=== PATIENT | male | born 1930 | race Caucasian/White ===

== ENCOUNTER 2016-10-25 10:30 | Day surgery (SDC) | payer OTHER ==
[2016-10-03 13:23] VITALS: Ht 165.1 cm; Wt 78.6 kg
[~2016-10-25] VITALS: Ht 165.1 cm; Wt 78.6 kg
[~2016-10-25 10:30] MED LIST: ALLO300T2 PO; ATEN-173 PO; CALC600T9 PO; CHLO10CA7 PO; CHOL1000 PO; CIPROFLOXACIN 400MG / 200ML D5W IV SCH; CIPROFLOXACIN 500 MG TAB PO SCH; FINA5TAB PO; FURO-85 PO; HYT/2 PO; JOINT JUICE PO; LACTATED RINGER'S 1000ML 1,000 ML IV SCH; PHEN-876 PO; PHEN95TA10 PO; POTA20TA16 PO; PRLSR20 PO; SENN-63 PO; SIMV40TA2 PO; WARF1TAB6 PO; WARF2TAB8 PO
[2016-10-25 11:02] LABS: HEMATOCRIT 40.2 % (42-52); MEAN CELL VOLUME 83.1 fL (80-100); MEAN CORPUSCULAR HEMOGLOBIN 27.7 pg (25-34); MEAN PLATELET VOLUME 8.9 fL (7.4-10.4); PLATELET COUNT 153 K/uL (130-400); RED BLOOD COUNT 4.84 M/uL (4.7-6.1); WHITE BLOOD COUNT 9.68 K/uL (4.8-10.8)
[2016-10-25] MEDS ORDERED: ENOX80IN SQ (11:09)
[2016-10-25 11:12] VITALS: BP 158/71; PULSE 56; TEMP 36.9; O2SAT 98
[2016-10-25 11:13] LABS: MEAN CORPUSCULAR HGB CONC 33.3 g/dl (32-36)
[2016-10-25 11:16] LABS: INR 1.1 (0.9-1.1); PARTIAL THROMBOPLASTIN RATIO 1.1; PROTHROMBIN TIME (PATIENT) 11.4 SECONDS (9.0-12.0)
--- NOTE | 2016-10-25 12:13 | Endo History and Physical ---
History & Physical Date of Service: Oct 25, 2016. Chief Complaint: Pancreatic cyst Referring Physician: History of Present Illness 86 year old male referred for evaluation of an enlarging HOP cyst, MRI with 37 x 12 mm and evidence of growth over several years. Past Surgical History Hx Cardiac Surgery: No Hx Abdominal Surgery: Yes (LAP CHOLEY) Hx Post-Op Nausea and Vomiting: No Hx Cancer Surgery: Yes (BRONCHOSCOPY) Hx Thoracic Surgery: No Hx Orthopedic: No Hx Urinary Tract Surgery: Yes (CYSTOSCOPY) Social History Smoking Status: Former Smoker Hx Substance Use: No Hx Alcohol Use: Yes (H/O ALCOHOLISM QUIT 6 YEARS AGO) Allergies Coded Allergies: No Known Allergies (Unverified , 10/25/16) Current Medications Reported Home Medications Medications Dose Route/Sig Max Daily Dose Days Date Category Lovenox (Enoxaparin Sodium) 80 Mg/0.8 Ml Inj 80 Mg SQ Q12H 10/25/16 Reported Senokot (Sennosides) 8.6 Mg Tab 1 Tab PO QPM 10/03/16 Reported [Joint Juice] 4 Oz PO QPM 10/03/16 Reported Proscar (Finasteride) 5 Mg Tab 5 Mg PO QPM 10/03/16 Reported Vitamin D3 (Cholecalciferol) 1,000 Unit Tab 1 Tab PO QAM 10/03/16 Reported Librium (Chlordiazepoxide) 10 Mg Cap 10 Mg PO QAM PRN 10/03/16 Reported Calcium + D (Calcium Carbonate-Vitamin D) 1 Tab Tab 200 Mg PO BID 10/03/16 Reported Tenormin (Atenolol) 25 Mg Tab 25 Mg PO QAM 10/03/16 Reported Jantoven (Warfarin Sodium) 2 Mg Tab 2 Mg PO TWTHSASU 10/03/16 Reported Jantoven (Warfarin Sodium) 1 Mg Tab 1 Mg PO MF 10/03/16 Reported Zocor (Simvastatin) 40 Mg Tab 40 Mg PO QPM 10/03/16 Reported Lasix (Furosemide) 20 Mg Tab 20 Mg PO QAM 10/03/16 Reported Klor-Con (Potassium Chloride) 20 Meq Tabcr 20 Meq PO BID 10/03/16 Reported Prilosec (Omeprazole) 20 Mg Capcr 20 Mg PO BID 10/03/16 Reported Zyloprim (Allopurinol) 300 Mg Tab 300 Mg PO HS 10/03/16 Reported Vital Signs Weight (Kilograms): 78.64 Height (Feet): 5 Height (Inches): 5 Date Time Temp Pulse Resp B/P (MAP) Pulse Ox O2 Delivery O2 Flow Rate FiO2 10/25/16 11:12 36.9 56 20 158/71 (100) 98 Room Air Physical Exam General Appearance: no apparent distress Respiratory/Chest: Auscultation: breath sounds normal Cardiovascular: Heart Auscultation: II/ AL, pertinent finding (Irregular) Abdomen: Inspection & Palpation: soft Assessment and Plan 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 For EGD / EUS today for possible aspiration. We have discussed the risks to include bleeding, infection, perforation, pain, pancreatitis, and need for follow-up studies. Plan EGD EUS with possible FNA
[2016-10-25] MEDS ORDERED: FENTANYL CITRATE INJ 50 MCG/1 ML 2 ML VIAL ONE (13:10)
[2016-10-25] MEDS ORDERED: MIDAZOLAM HCL 1 MG/ML 2ML VIAL ONE (13:10)
--- NOTE | 2016-10-25 14:09 | GI REPORT ---
Procedure Date: 10/25/2016 1:50 PM Procedure: Upper GI endoscopy Indications: Abnormal CT of the GI tract Medicines: General Anesthesia Complications: No immediate complications. Estimated blood loss: Minimal. Estimated Blood Loss: Estimated blood loss was minimal. Procedure: Pre-Anesthesia Assessment: - Prior to the procedure, a History and Physical was performed, and patient medications, allergies and sensitivities were reviewed. The patient's tolerance of previous anesthesia was reviewed. - The risks and benefits of the procedure and the sedation options and risks were discussed with the patient. All questions were answered and informed consent was obtained. - Patient identification and proposed procedure were verified prior to the procedure by the physician, the nurse and the component assembler supervisor. The procedure was verified in the pre-procedure area in the procedure room. - Pre-procedure physical examination revealed no contraindications to sedation. - ASA Grade Assessment: IV - A patient with severe systemic disease that is a constant threat to life. - After reviewing the risks and benefits, the patient was deemed in satisfactory condition to undergo the procedure. - The anesthesia plan was to use general anesthesia. - Immediately prior to administration of medications, the patient was re-assessed for adequacy to receive sedatives. - The heart rate, respiratory rate, oxygen saturations, blood pressure, adequacy of pulmonary ventilation, and response to care were monitored throughout the procedure. - The physical status of the patient was re-assessed after the procedure. After obtaining informed consent, the endoscope was passed under direct vision. Throughout the procedure, the patient's blood pressure, pulse, and oxygen saturations were monitored continuously. The scope was introduced through the mouth, and advanced to the third part of duodenum. The upper GI endoscopy was accomplished without difficulty. The patient tolerated the procedure well. Findings: The examined esophagus was normal. The Z-line was regular and was found 39 cm from the incisors. Diffuse moderate inflammation characterized by congestion (edema), erythema and granularity was found in the entire examined stomach. Biopsies were taken with a cold forceps for histology. Estimated blood loss was minimal. A single 15 mm semi-sessile polyp with no bleeding and no stigmata of recent bleeding was found on the greater curvature of the gastric body. Biopsies were taken with a cold forceps for histology. Estimated blood loss was minimal. The examined duodenum was normal. Impression: - Normal. - Z-line regular, 39 cm from the incisors. - Gastritis. Biopsied. - A single gastric polyp. Biopsied. - Normal examined duodenum. Recommendation: - Perform an upper endoscopic ultrasound (UEUS) today. - Await pathology results. Aldair Zaman D.O. Aldair Zaman, 10/25/2016 2:08:26 PM This report has been signed electronically. Note Initiated On: 10/25/2016 1:50 PM I attest to the content of the Intraoperative Record and orders documented therein, exceptions below
[2016-10-25] MEDS ORDERED: ATROPINE SULFATE 0.1 MG/ML 5ML SYR IV PRN (14:30)
[2016-10-25] MEDS ORDERED: EpHEDrine SULFATE INJ 50 MG/ML AMP IV PRN (14:30)
--- NOTE | 2016-10-25 14:41 | GI REPORT ---
Procedure Date: 10/25/2016 1:49 PM Procedure: Upper EUS Indications: Pancreatic cyst on CT scan Medicines: General Anesthesia, Cipro 400 mg IV Complications: No immediate complications. Estimated blood loss: Minimal. Estimated Blood Loss: Estimated blood loss was minimal. Procedure: Pre-Anesthesia Assessment: - Prior to the procedure, a History and Physical was performed, and patient medications, allergies and sensitivities were reviewed. The patient's tolerance of previous anesthesia was reviewed. - The risks and benefits of the procedure and the sedation options and risks were discussed with the patient. All questions were answered and informed consent was obtained. - Patient identification and proposed procedure were verified prior to the procedure by the physician, the nurse and the finishing and shipping supervisor. The procedure was verified in the procedure room. - Pre-procedure physical examination revealed no contraindications to sedation. - ASA Grade Assessment: IV - A patient with severe systemic disease that is a constant threat to life. - After reviewing the risks and benefits, the patient was deemed in satisfactory condition to undergo the procedure. - The anesthesia plan was to use general anesthesia. - Immediately prior to administration of medications, the patient was re-assessed for adequacy to receive sedatives. - The heart rate, respiratory rate, oxygen saturations, blood pressure, adequacy of pulmonary ventilation, and response to care were monitored throughout the procedure. - The physical status of the patient was re-assessed after the procedure. After obtaining informed consent, the endoscope was passed under direct vision. Throughout the procedure, the patient's blood pressure, pulse, and oxygen saturations were monitored continuously. The Endosonoscope was introduced through the mouth, and advanced to the second part of duodenum. The upper EUS was accomplished without difficulty. The patient tolerated the procedure well. Findings: Endosonographic Finding : There was no sign of significant endosonographic abnormality in the ampulla. No masses were identified. There was no sign of significant endosonographic abnormality in the left lobe of the liver. Homogeneous parenchyma and no focal pathology were identified. There was dilation in the common bile duct which measured up to 7.4 mm. There was no sign of significant endosonographic abnormality in the pancreatic body, in the pancreatic tail and in the main pancreatic duct. No masses, the pancreatic duct was thin in caliber. A hypoechoic lesion suggestive of a cyst was identified in the pancreatic head. It is not in obvious communication with the pancreatic duct. The lesion measured 30 mm by 29 mm in maximal cross-sectional diameter. There was a single compartment without septae. The outer wall of the lesion was thin. There was no associated mass. There was internal debris within the fluid-filled cavity. Diagnostic needle aspiration for fluid was performed. Color Doppler imaging was utilized prior to needle puncture to confirm a lack of significant vascular structures within the needle path. One pass was made with the 22 gauge needle using a transduodenal approach. A stylet was used. The amount of fluid collected was 6 mL. The fluid was cloudy, turbid, brown and watery. Sample(s) were sent for albumin, cytology, bacterial cultures and CEA. Estimated blood loss was minimal. No lymphadenopathy seen. Impression: - Normal ampulla. - Normal left lobe of the liver. - Mild dilation in the common bile duct which measured up to 7.4 mm. - There was no sign of significant pathology in the pancreatic body, in the pancreatic tail and in the main pancreatic duct. - A cystic lesion was seen in the pancreatic head. The diagnosis is suggestive of a pancreatic pseudocyst. Fine needle aspiration for fluid performed. Recommendation: - Discharge patient to home (ambulatory). - Advance diet as tolerated today. - Await cytology results and await tumor markers. - Cipro (ciprofloxacin) 500 mg PO BID for 3 days. - If sample found to be consistent with a pseudocyst, then further imaging will not be required. Aldair Zaman D.O. Aldair Zaman, 10/25/2016 2:40:37 PM This report has been signed electronically. Note Initiated On: 10/25/2016 1:49 PM I attest to the content of the Intraoperative Record and orders documented therein, exceptions below
[2016-10-25] MEDS ORDERED: LIDOCAINE HCL 2% 2 ML VIAL (20MG/ML) ONE (14:44)
[2016-10-25] MEDS ORDERED: PROPOFOL IV EMULSION 10 MG/ML 20 ML VIAL IV ONE (14:44)
[2016-10-25] MEDS ORDERED: SUCCINYLCHOLINE CHLORIDE 20 MG/ML 10 ML VIAL IV ONE (14:44)
[2016-10-25] MEDS ORDERED: ONDANSETRON INJ 2 MG/ML 2 ML VIAL IV PRN (14:45)
--- NOTE | 2016-10-25 14:45 | [facility] Post Operative Brief Note ---
Immediate Operative Summary Operative Date Oct 25, 2016. Pre-Operative Diagnosis Pancreatic cyst Post-Operative Diagnosis Gastritis Gastric polyp 30 mm pancreatic head cyst Procedure(s) Performed upper endoscopy, endoscopic ultrasound Surgeon Dr. Jennifer Zaman Die Technician Surgeon(s) none Estimated Blood Loss 0ml Findings Gastritis Gastric polyp 30 mm pancreatic head cyst Specimens 1) Gastric biopsies 2) Gastric polyp 3) FNA pancreatic cyst (CEA, Amylase, Culture, Cytology) Anesthesia Genreal Complication(s) None Disposition Recovery Room / PACU
--- NOTE | 2016-10-25 14:47 | Discharge Instructions ---
Endoscopy Patient Instructions Date / Procedure(s) Performed Oct 25, 2016. EGD, Other (Endoscopic Ultrasound) Allergy Information Coded Allergies: No Known Allergies (Unverified , 10/25/16) Discharge Date / Findings Oct 25, 2016. Diffuse Gastritis 1 Gastric polyp 30 mm pancreatic cyst (Likely represents a pseudocyst and may not need any further follow-up) Medication Instructions Restart Stopped Medication(s): Reported Home Medications Medications Dose Route/Sig Max Daily Dose Days Date Category Lovenox (Enoxaparin Sodium) 80 Mg/0.8 Ml Inj 80 Mg SQ Q12H 10/25/16 Reported Senokot (Sennosides) 8.6 Mg Tab 1 Tab PO QPM 10/03/16 Reported [Joint Juice] 4 Oz PO QPM 10/03/16 Reported Proscar (Finasteride) 5 Mg Tab 5 Mg PO QPM 10/03/16 Reported Vitamin D3 (Cholecalciferol) 1,000 Unit Tab 1 Tab PO QAM 10/03/16 Reported Librium (Chlordiazepoxide) 10 Mg Cap 10 Mg PO QAM PRN 10/03/16 Reported Calcium + D (Calcium Carbonate-Vitamin D) 1 Tab Tab 200 Mg PO BID 10/03/16 Reported Tenormin (Atenolol) 25 Mg Tab 25 Mg PO QAM 10/03/16 Reported Jantoven (Warfarin Sodium) 2 Mg Tab 2 Mg PO TWTHSASU 10/03/16 Reported Jantoven (Warfarin Sodium) 1 Mg Tab 1 Mg PO MF 10/03/16 Reported Zocor (Simvastatin) 40 Mg Tab 40 Mg PO QPM 10/03/16 Reported Lasix (Furosemide) 20 Mg Tab 20 Mg PO QAM 10/03/16 Reported Klor-Con (Potassium Chloride) 20 Meq Tabcr 20 Meq PO BID 10/03/16 Reported Prilosec (Omeprazole) 20 Mg Capcr 20 Mg PO BID 10/03/16 Reported Zyloprim (Allopurinol) 300 Mg Tab 300 Mg PO HS 10/03/16 Reported Provider Instructions Activity Restrictions - No exercising or heavy lifting for 24 hours. - Do not drink alcohol the day of the procedure. - Do not drive a car or operate machinery until the day after the procedure. - Do not make any important decisions or sign important papers in 24 hours after the procedure. Following Day: - Return to full activity which may include returning to work/school. Diet Start your diet with liquids and light foods (jello, soup, juice, toast). Then eat your usual diet if not nauseated. Treatment For Common After Affects For mild abdominal pain, bloating, or excessive gas: - Rest - Eat lightly - Lie on right side Follow-Up Information Follow-up with Dr. Yoder as scheduled Await pathology results from today Ciprofloxacin 500 mg twice daily for 3 days may restart Coumadin today Anesthesia Information What You Should Know You have had a procedure that required some medicine to reduce anxiety and discomfort. This treatment is called moderate sedation. After receiving the treatment, you may be sleepy, but you will be able to breathe on your own. The effects of the treatment may last for several hours. Follow these instructions along with Activity/Diet recommendations noted above: * Do NOT do anything where dizziness or clumsiness would be dangerous. * Rest quietly at home today, then you can be up and about tomorrow. * Have a responsible person stay with you the rest of today. * You may have had an I.V. today. If so, you may take the dressing off later today. Recommendations Call your doctor if: * Trouble breathing * Continuous vomiting for more than 24 hours * Temperature above 101 degrees * Severe abdominal pain or bloating * Pain not relieved by pain medicine ordered * There is increased drainage or redness from any incision * A large amount of rectal bleeding greater than 2-3 tablespoons. (If you had a polyp/s removed or have hemorrhoids, a small amount of blood - from the rectum is to be expected.) * You have any unanswered questions or concerns. IN THE EVENT OF A SERIOUS EMERGENCY, GO TO THE NEAREST EMERGENCY ROOM Your discharge instructions were prepared by provider Aldair Zaman. Patient Instructions Signature Page Ramone Snider Patient (or Guardian) Signature/Date: I have read and understand the instructions given to me by my caregivers. Caregiver/RN/Doctor Signature/Date: The above-named patient and/or guardian has received patient instructions on this date. + Original Patient Signature Page (only) stays with chart. Please make copy for patient.
[2016-10-25 15:20] VITALS: BP 121/70; PULSE 54; TEMP 36.5; O2SAT 96
--- NOTE | 2016-10-25 15:30 | Anesthesiology Progress Note ---
Anesthesia Post Op Note Date & Time Oct 25, 2016 at 15:30 Vital Signs Pain Intensity: 0 Vital Signs Past 12 Hours Date Time Temp Pulse Resp B/P (MAP) Pulse Ox O2 Delivery O2 Flow Rate FiO2 10/25/16 15:10 58 16 137/79 98 Nasal Cannula 3 10/25/16 15:00 36.5 56 16 135/76 98 Nasal Cannula 3 10/25/16 14:50 60 18 148/88 98 Oxymask 5 10/25/16 14:40 67 18 146/88 98 Oxymask 10 10/25/16 14:35 36.3 56 18 154/84 98 Oxymask 10 10/25/16 11:12 36.9 56 20 158/71 (100) 98 Room Air Notes Mental Status: alert / awake / arousable, participated in evaluation Pt Amnestic to Procedure: Yes Nausea / Vomiting: adequately controlled Pain: adequately controlled Airway Patency, RR, SpO2: stable & adequate BP & HR: stable & adequate Hydration State: stable & adequate Anesthetic Complications: no major complications apparent
[2016-10-25 15:50] VITALS: BP 139/70; PULSE 54; TEMP 36.5; O2SAT 98
[2016-10-25 16:22] VITALS: BP 128/65; PULSE 50; TEMP 36.6; O2SAT 94
[2016-10-25] MEDS ORDERED: NURSING VERBAL MED ORDER ONE ×2 (16:45)
== END 2016-10-25 15:56 | disposition home or self-care (01) ==
LOC: C.ACU 10:30
PROVIDERS: ATTEND Internal Medicine Gastroenterology
DX: K29.70 Gastritis, unspecified, without bleeding (principal); K31.7 Polyp of stomach and duodenum; K86.2 Cyst of pancreas; K83.8 Other specified diseases of biliary tract; Z79.899 Other long term (current) drug therapy